=== PATIENT | female | born 1950 | race African-American/Black ===

== ENCOUNTER 2023-09-23 14:33 | Outpatient (CLI) | payer MEDICARE, MEDICAID | END 2023-09-23 14:34 | disposition home or self-care (01) | LOC: CSHLAB 14:33 | PROVIDERS: ATTEND Obstetrics & Gynecology | DX: Z01.818 Encounter for other preprocedural examination (principal); N84.0 Polyp of corpus uteri; N95.0 Postmenopausal bleeding; Z95.5 Presence of coronary angioplasty implant and graft | CPT/HCPCS: 93005; 93010 ==

== ENCOUNTER → 2023-09-24 | Day surgery (SDC) | payer MEDICARE, MEDICAID ==
[2023-09-23 15:26] VITALS: BMI 58.2
[2023-09-23 16:38] LABS: Hematocrit 37.8 % (34.9-44.5); Mean Corpuscular HGB CONC 31.7 g/dL (32.0-36.0); Mean Corpuscular Hemoglobin 25.9 pg (27.0-33.0); Mean Corpuscular Volume 81.5 fl (81.6-98.3); Mean Platelet Volume 9.2 fl (7.4-10.4); Platelet Count 285 10x3/uL (150-450); RBC Distribution Width 18.4 % (11.5-14.5); Red Blood Cell (RBC) Count 4.64 10x6/uL (3.90-5.03); White Blood Cell (WBC) Count 4.8 10x3/uL (3.5-10.5)
[2023-09-23 16:59] LABS: Anion Gap 15 mmol/L (10-20); BUN (Urea Nitrogen) 7 mg/dL (9.8-20.1); Calc. Creatinine Clearance 0 mL/min (70-130); Calcium 9.2 mg/dL (7.8-10.44); Carbon Dioxide 24 mmol/L (23-31); Chloride 107 mmol/L (98-107); Estimated GFR 72; Glucose 85 mg/dL (83-110); Potassium 3.9 mmol/L (3.5-5.1); Sodium 142 mmol/L (136-145)
== END ==
LOC: CSHSDC 07:48
PROVIDERS: ATTEND Obstetrics & Gynecology
DX: N95.0 Postmenopausal bleeding (principal); N84.0 Polyp of corpus uteri; Z53.09 Procedure and treatment not carried out because of other contraindication; Z95.5 Presence of coronary angioplasty implant and graft; Z01.818 Encounter for other preprocedural examination
CPT/HCPCS: 80048; 85027; 86850; 86900; 86901; 93005; 93010

== ENCOUNTER 2024-10-01 08:38 | Outpatient (CLI) | payer MEDICARE, MEDICAID | END 2024-10-01 08:39 | disposition home or self-care (01) | LOC: CSHSLEEP 08:38 | PROVIDERS: ATTEND Family Medicine | DX: G47.33 Obstructive sleep apnea (adult) (pediatric) (principal); R53.83 Other fatigue; E66.9 Obesity, unspecified; Z68.44 Body mass index [BMI] 60.0-69.9, adult; F32.A Depression, unspecified; I25.10 Atherosclerotic heart disease of native coronary artery without angina pectoris; I11.9 Hypertensive heart disease without heart failure; E11.9 Type 2 diabetes mellitus without complications; G47.61 Periodic limb movement disorder | CPT/HCPCS: 95811 ==